=== PATIENT | male | born 1945 | race Caucasian/White ===

== ENCOUNTER → 2017-07-23 | Day surgery (SDC) | payer OTHER ==
[~2017-07-23] MED LIST: BUPIVACAINE HCL PF 0.75% 30 ML VIAL ONE; CLINDAMYCIN PHOS 600 MG/4 ML VIAL ONE; GABA100C4 PO; HYDR12.56 PO; LACTATED RINGER'S 1000 ML INJ 1,000 ML ONE; LIDOCAINE 1.5%/EPINEPHrine 1:200,000 PF SOLN 30 ML AMP ONE; LORTA5 PO; MIDAZOLAM HCL 2 MG/2 ML VIAL ONE; MOBI7.5T PO; MULTTAB PO; NEOMYCIN; ONDANSETRON HCL 4 MG/2 ML VIAL ONE; PROMETHAZINE INJ 25 MG/ML VIAL ONE; PROPOFOL 200 MG/20 ML AMP IV ONE; VITA-13; VITA250L PO; Z.0.WALKERFRONT
--- NOTE | 2017-07-23 20:09 | MP ---
cc: NABIL ALLISON DATE OF SURGERY 07/23/2017 PREOPERATIVE DIAGNOSIS Right shoulder massive rotator cuff tear with impingement. POSTOPERATIVE DIAGNOSES 1. Right shoulder massive rotator cuff tear with impingement. 2. Proximal biceps tendon partial tearing. SURGEON Dr. Nabil Allison [place] [facility] [place] The surgical procedure was assisted by my Advanced Registered Nurse Practitioner. My TECHNICAL SUPPORT PROFESSIONAL presence was necessary throughout this case for the manipulation and positioning of the surgical extremity. My TECHNICAL SUPPORT PROFESSIONAL was assisting me throughout the duration of this procedure. The skill set of an Advance Registered Nurse Practitioner was medically necessary to complete this procedure. During the surgical case, the surgical services asst was working at the back table and the Advance Registered Nurse Practitioner was directly assisting me. PROCEDURE Right shoulder arthroscopic rotator cuff repair of massive tear with arthroscopic biceps tenodesis and subacromial decompression with partial acromioplasty. ESTIMATED BLOOD LOSS Minimal. ANESTHESIA Regional and general. JUSTIFICATION FOR THE PROCEDURE The patient has a massive rotator cuff tear. He understands the risks and benefits of surgical management. Note that yesterday the patient had a fall and sustained a skin tear to the right elbow. This was evaluated preoperatively. We discussed with the patient the risks, benefits of continuing to move on with surgical management with having a skin tear. The patient said that he very much wanted to move forward with surgical management despite increased risks. The skin tear had been dressed with a Tegaderm and will be managed postoperatively with a Tegaderm. The patient had regional anesthesia. He was brought back to operative theater. General anesthesia was administered. He was placed into a lateral decubitus position with an axillary roll and a well-padded down leg. He was placed into 12 pounds of in-line traction. The right upper extremity was prepped and draped in usual sterile fashion. I made standard posterior arthroscopic portal for diagnostic arthroscopy. We found minimal chondromalacia about the glenohumeral joint. The axillary pouch was free of loose bodies. We found a massive rotator cuff tear that was retracted. We found that the biceps tendon was in very poor condition. There was tendinosis of at least 30% of the intra-articular portion of the biceps tendon. Then we looked at the insertion site there was very significant tearing which looked like it was almost about to completely tear from the superior glenoid with massive fraying noted. The scope was placed into the subacromial space we performed a subacromial bursectomy. There was quite a bit of spurring of the anterior acromion which was flattened using a bur. We mobilized the rotator cuff as there was some tension on the cuff when we were trying to reduce it. We used an elevator to help mobilize the cuff. We made decision to perform a biceps tenodesis especially given the patient's rather active lifestyle. We tagged the midportion of the interarticular biceps tendon with three individual Arthrex fiber links which had very good purchase within the tendon. We then cut the tendon off of the superior glenoid and debrided the insertion site. We then prepared the very top portion of the groove by creating a airline transport pilot hole and then using a 7-mm coring drill to complete the hole. We then delivered the suture and the proximal biceps tendon into this hole and secured it with a swivel lock tenodesis bio composite Arthrex implant which had excellent purchase. The tendon laid down very nicely in anatomic position on the top of the bicipital groove. We turned our attention back to the rotator cuff. Found that we could not quite get it anatomically reduced. Therefore we medialized some of the cartilage using a combination of shaver and bur. The tear was a very complex type of tear going in multiple different patterns. Anteriorly there was a definite significant cleavage portion and then posteriorly there was significant medial to lateral tear. Overall the condition of the cuff tendon was fairly good but not in excellent condition. We then moved on with the repair of the tendon using an Arthrex suture bridge technique. We placed one anchor anteromedially and then one anchor posteromedially. The posterior medial anchor had fairly good purchase apparently seen, then I did pull on it to make sure that it did not pull out. We threw all of the four horizontal mattress stitches and then using my standard technique I started tying posteriorly. After tied the two posterior sutures I reevaluated and found that the posterior medial anchor had pulled out of the bone. Therefore we cut the two knots out from the posterior anchor. Note that when we were using the arthroscopic scissor the scissor itself broke and a fragment of the metal was retrieved from inside the shoulder. I compared this to the actual scissor and showed that there was no missing pieces at all. We then retrieved the anchor after both knots had been cut. We went ahead and placed another anchor, this time more posterior to the original posterior medial anchor and a little bit more lateral to get into better bone. This one had better purchase and good pull out strength by manual testing. We then threw the other two horizontal mattress stitches in similar places to where the other sutures were thrown. We then again went ahead and tied from posteriorly going anteriorly with giving very good reduction of the rotator cuff. We then crisscrossed the sutures in standard fashion and laid these down laterally with to further bio swivel locks. Note that the medial anchors are bio cork screws. We took final arthroscopic pictures showing that the cuff was in near anatomic position and had very nice crisscross pattern of sutures holding the cuff in position. The arthroscopic portals were closed with 2-0 Vicryl followed by 3-0 nylon. The arm was dressed. The patient was placed into adduction pillow. Note that prior to being placed in to the adduction pillow we did reinspect the skin tear area. We had a Tegaderm over this and then we also augmented this with a Coban lightly applied. I did talk with the patients and explained that if he does develop too much swelling in the hand that it would be okay for him to take the Coban off. He is going to be seen in physical therapist tomorrow. He will be following the massive rotator cuff repair protocol and biceps tenodesis protocol. MD SAGAR Lundberg/KK /4:57 PM /7:29 PM [id number]
== END | disposition home or self-care (01) ==
LOC: ESDC 12:11
PROVIDERS: ATTEND Orthopaedic Surgery
DX: M75.121 Complete rotator cuff tear or rupture of right shoulder, not specified as traumatic (principal); M75.41 Impingement syndrome of right shoulder; S46.211A Strain of muscle, fascia and tendon of other parts of biceps, right arm, initial encounter
CPT/HCPCS: 01630; 01716; 01991; 29826; 29827; 29828; 64417; 76942; C1713; J2250; J2405; J2550; J7120